=== PATIENT | female | born 1960 | race Caucasian/White ===

== ENCOUNTER → 2016-10-27 | Outpatient (CLI) | payer MEDICAID | LOC: MW.CHRC 15:54 | PROVIDERS: ATTEND Family Medicine | DX: M48.06 Spinal stenosis, lumbar region (principal); Z53.9 Procedure and treatment not carried out, unspecified reason ==

== ENCOUNTER → 2016-12-10 | Outpatient (CLI) | payer MEDICAID ==
[~2016-12-10] MED LIST: Albuterol 0.083% 2.5 MG/3 ML Neb Soln NEB ONE
== END | disposition home or self-care (01) ==
LOC: MW.RT 13:44
PROVIDERS: ATTEND Family Medicine
DX: R06.09 Other forms of dyspnea (principal); J44.9 Chronic obstructive pulmonary disease, unspecified
CPT/HCPCS: 94060; 94729

== ENCOUNTER 2016-12-14 08:52 | Day surgery (SDC) | payer MEDICAID ==
[~2016-12-14 08:52] MED LIST changes: -Albuterol 0.083% 2.5 MG/3 ML Neb Soln NEB ONE; +Lidocaine 2% 5 ML SDV ONE; +Midazolam 1 MG/ML 2 ML SDV ONE; +Propofol 200 MG/20 ML SDV ONE; +fentaNYL 100 MCG/2 ML SDV ONE
[2016-12-14] MEDS ORDERED: Lactated Ringers 1,000 ML IV SCH ×2 (09:00→13:45)
--- NOTE | 2016-12-14 10:02 | PCM.PREANE ---
Preanesthetic Assessment - Anesthesia/Transfusion/Family Hx Anesthesia History: Prior Anesthesia Without Reaction Family History of Anesthesia Reaction: No Transfusion History: No Prior Transfusion(s) - Review of Systems General: No Symptoms Pulmonary: Shortness of Breath Cardiovascular: No Symptoms Gastrointestinal: No symptoms Neurological: No Symptoms Other: Reports: None - Physical Assessment Respiratory Rate: 20 Vital Signs: Last Vital Signs Temp 36.7 C 12/14/16 09:00 Pulse 88 12/14/16 09:00 Resp 20 12/14/16 09:00 BP 155/84 H 12/14/16 09:00 Pulse Ox Height: 1.7 m Weight: 145.603 kg ASA Class: 3 Mental Status: Alert & Oriented x3 Airway Class: Mallampati = 3 Dentition: Reports: Normal Dentition Thyro-Mental Finger Breadths: 3 Mouth Opening Finger Breadths: 3 ROM/Head Extension: Limited/Partial Lungs: Decreased breath sounds Cardiovascular: Regular Rate, Regular Rhythm - Allergies Allergies/Adverse Reactions: Allergies Allergy/AdvReac Type Severity Reaction Status Date / Time ciprofloxacin [From Cipro] Allergy Hives Verified 12/09/16 15:01 - Blood Blood Available: No - Anesthesia Plan Pre-Op Medication Ordered: None - Acknowledgements Anesthesia Type Planned: General Anesthesia Pt an Appropriate Candidate for the Planned Anesthesia: Yes Alternatives and Risks of Anesthesia Discussed w Pt/Guardian: Yes Pt/Guardian Understands and Agrees with Anesthesia Plan: Yes PreAnesthesia Questionnaire HEENT History: Reports: None Other HEENT History: uses glasses for reading and driving Cardiovascular History: Reports: High cholesterol, Other (see below) ( paroxysmal tachicardia) Respiratory History: Reports: COPD (advanced), Sleep apnea (not using C-PAP mashine for years), SOB Other Respiratory History: She is O2 dependent. Recent flare up, tapering prednisone - down to 20 mg per day. Finished Z-pack 10 days ago. 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 Paula for pain, has lumbar spinal stenosis, hx of fx toes and hands Neurological History: Reports: None, Other (see below) (myofascial pain, cervical radiculopathy) Psychiatric History: Reports: Anxiety, Depression Endocrine/Metabolic History: Reports: Obesity/BMI 30+, Other (see below) (right adrenal adenoma) Hematologic History: Reports: Polycythemia (sec. to hypoxia) Immunologic History: Reports: None Oncologic (Cancer) History: Reports: None Dermatologic History: Reports: None Other Dermatologic History: Chronic Hives - Infectious Disease History Infectious Disease History: Reports: None - Past Surgical History Head Surgeries/Procedures: Reports: None HEENT Surgical History: Reports: Tonsillectomy Cardiovascular Surgical History: Reports: None Respiratory Surgical History: Reports: None GI Surgical History: Reports: Appendectomy, Cholecystectomy Female Surgical History: Reports: Breast biopsy, section, Tubal ligation Endocrine Surgical History: Reports: None Neurological Surgical History: Reports: Lumbar spine Musculoskeletal Surgical History: Reports: None Oncologic Surgical History: Reports: Lumpectomy (left breast) Dermatological Surgical History: Reports: None - SUBSTANCE USE Smoking Status *Q: Former Smoker (quit a year ago) Tobacco Use Within Last Twelve Months: No Second Hand Smoke Exposure: No Days Per Week of Alcohol Use: 1 Number of Drinks Per Day: 1 Total Drinks Per Week: 1 Recreational Drug Use History: Yes Recreational Drug Type: Reports: Methamphetamine (for 15 years) - HOME MEDS Home Medications: Home Meds Albuterol [Proventil HFA] 2 puff INH Q4H PRN 04/30/14 [History] Omeprazole [Prilosec] 20 mg PO DAILY 04/30/14 [History] Hydrocodone/Acetaminophen [Hydrocodon-Acetaminophen 5-325] 1 tab PO ASDIRECTED PRN 09/09/14 [History] Cyclobenzaprine [Flexeril] 0.5 - 1 tab PO TID PRN 11/15/15 [History] Dicyclomine HCl [Bentyl] 1 - 2 tab PO TID PRN 11/15/15 [History] Montelukast Sodium [Singulair] 10 mg PO DAILY 11/15/15 [History] Ranitidine HCl 150 mg PO DAILY PRN 11/15/15 [History] Vilazodone [Viibryd] 40 mg PO DAILY 11/15/15 [History] Albuterol Sulfate 2.5 mg NEB Q4HR PRN 01/02/16 [History] Fluticasone/Salmeterol [Advair 250-50 Diskus] 1 disk IH BID 01/02/16 [History] Ipratropium [place] 0.2 mg NEB QID PRN 01/02/16 [History] Benzonatate 100 mg PO TID PRN 12/09/16 [History] Magnesium Oxide [Magnesium] 250 mg PO DAILY 12/09/16 [History] Pyridoxine HCl [Vitamin B-6] 250 mg PO ASDIRECTED 12/09/16 [History] Rosuvastatin Calcium 5 mg PO BEDTIME 12/09/16 [History] Turmeric [Curcumin] 500 mg PO ASDIRECTED 12/09/16 [History] - CURRENT (IN HOUSE) MEDS Current Meds: Current Medications Lactated Ringer's (Ringers, Lactated) 1,000 mls @ 125 mls/hr IV ASDIRECTED TEMITOPE Discontinued Medications Fentanyl (Sublimaze) Confirm Administered Dose 100 mcg .ROUTE .STK-MED ONE Stop: 12/14/16 08:40 Lidocaine (Xylocaine-Mpf 2%) Confirm Administered Dose 5 ml .ROUTE .STK-MED ONE Stop: 12/14/16 08:39 Midazolam HCl (Versed 1 Mg/Ml) Confirm Administered Dose 2 mg .ROUTE .STK-MED ONE Stop: 12/14/16 08:40 Propofol (Diprivan 20 Ml) Confirm Administered Dose 200 mg .ROUTE .STK-MED ONE Stop: 12/14/16 08:40
[2016-12-14] MEDS ORDERED: Albuterol/Ipratropium 3.0-0.5 MG/3 ML Neb Soln NEB ONE (12:02)
[2016-12-14] MEDS ORDERED: Albuterol/Ipratropium 3.0-0.5 MG/3 ML Neb Soln ONE (12:10)
[2016-12-14] MEDS ORDERED: Bupivacaine 0.5% 10 ML SDV ONE ×2 (12:17→13:06)
[2016-12-14] MEDS ORDERED: Lidocaine 1% 20 ML MDV ONE (12:17)
[2016-12-14] MEDS ORDERED: methylPREDNISolone Sodium Succinate 125 MG/2 ML SDV ONE (12:21)
[2016-12-14] MEDS ORDERED: Ondansetron 4 MG/2 ML SDV ONE (13:02)
[2016-12-14] MEDS ORDERED: fentaNYL 100 MCG/2 ML SDV IVPUSH PRN (13:03)
[2016-12-14] MEDS ORDERED: Morphine 10 MG/ML Syringe IVPUSH PRN (13:36)
[2016-12-14] MEDS ORDERED: Acetaminophen/HYDROcodone 325-5 MG Tab PO PRN (13:36)
--- NOTE | 2016-12-14 13:39 | PCM.OPNOTE ---
- General Post-Op/Procedure Note Date of Surgery/Procedure: 12/14/16 Operative Procedure(s): Excision left breast mass Pre Op Diagnosis: Palpable left breast mass Post-Op Diagnosis: Same Anesthesia Technique: Local, MAC (ASA III) Primary Surgeon: Lloyd Wang Fluid Replacement, Intraop: 300 EBL in mLs: 5 Condition: Good Free Text/Narrative:: Dictation [id number]
[2016-12-14 14:22] VITALS: BP 128/72
--- NOTE | 2016-12-14 14:23 | PCM48HPAN ---
Post Anesthesia Note - EVALUATION WITHIN 48HRS OF ANESTHETIC Vital Signs in Normal Range: Yes Patient Participated in Evaluation: Yes Respiratory Function Stable: Yes Airway Patent: Yes Cardiovascular Function Stable: Yes Hydration Status Stable: Yes Pain Control Satisfactory: Yes Nausea and Vomiting Control Satisfactory: Yes Mental Status Recovered: Yes - COMMENTS/OBSERVATIONS Free Text/Narrative:: Pt states she's ready to go home - has no complaints of pain or nausea.
--- NOTE | 2016-12-14 20:41 | OR ---
SURGEON: Lloyd Wang M.D. DATE OF PROCEDURE: 12/14/2016 OPERATION PERFORMED: Excision of left breast mass. ANESTHESIA: Local MAC. ASA CLASSIFICATION: III. PREOPERATIVE DIAGNOSIS: Palpable left breast mass with nipple discharge. POSTOPERATIVE DIAGNOSIS: Palpable left breast mass with nipple discharge. ESTIMATED BLOOD LOSS: 5 mL. INTRAOPERATIVE FLUID REPLACEMENT: 300 mL of crystalloid. DESCRIPTION OF PROCEDURE: The patient was taken to the operating room and placed on the operating table in the supine position. Time-out was called for appropriate identification of patient and procedure. The surgical site had been marked prior to the patient entering the operating room. The patient was now positioned at approximately 30 degrees head up as she had severe COPD. The left breast was then prepped with Betadine solution, and sterile drapes were applied. A skin incision previously had been marked out going through the areola right over the mass. The skin was now infiltrated with 1% Xylocaine, then 0.5% Marcaine solution. An elliptical skin incision was then made and deepened into the breast tissue excising the mass in question. Clinically, this appeared to be a cyst. There was also some induration under the nipple at the 12 o'clock position, and this area was also dissected out with a separate incision. Both areas were completely removed. Hemostasis was obtained with the use of electrocautery. Both incisions were then closed in 2 layers approximating the subcutaneous tissue with 3-0 Polysorb and the skin with subcuticular 4-0 Monocryl. Because both incisions were in the areola, no Steri-Strips were placed. The wound was then dressed with Telfa pad, fluffs, and Mefix tape. Sponge, needle, and instrument counts were all correct. The patient tolerated the procedure well and was taken to the recovery room in stable condition. DAMI / CORAL /[id number]
== END 2016-12-14 14:30 | disposition home or self-care (01) ==
LOC: MW.SDS 08:52
PROVIDERS: ATTEND Surgery
PROC: 0HBU0ZZ Excision of Left Breast, Open Approach (ICD-10-PCS; principal; 2016-12-14)
DX: L72.0 Epidermal cyst (principal); N60.42 Mammary duct ectasia of left breast; N64.1 Fat necrosis of breast; J44.9 Chronic obstructive pulmonary disease, unspecified; F41.9 Anxiety disorder, unspecified; M19.90 Unspecified osteoarthritis, unspecified site; J45.909 Unspecified asthma, uncomplicated; F32.9 Major depressive disorder, single episode, unspecified; E78.00 Pure hypercholesterolemia, unspecified; K21.9 Gastro-esophageal reflux disease without esophagitis; M19.049 Primary osteoarthritis, unspecified hand; D69.6 Thrombocytopenia, unspecified; G47.30 Sleep apnea, unspecified; D75.1 Secondary polycythemia; E66.01 Morbid (severe) obesity due to excess calories; Z87.01 Personal history of pneumonia (recurrent); Z87.891 Personal history of nicotine dependence; Z88.1 Allergy status to other antibiotic agents; Z99.81 Dependence on supplemental oxygen; Z79.899 Other long term (current) drug therapy; Z98.51 Tubal ligation status; Z90.49 Acquired absence of other specified parts of digestive tract; Z90.89 Acquired absence of other organs; Z98.890 Other specified postprocedural states; Z68.43 Body mass index [BMI] 50.0-59.9, adult
CPT/HCPCS: 19120; 88307; 94640; J2250; J2405; J2930; J3010; 00400; J2704

== ENCOUNTER 2019-06-24 10:43 | Emergency (ER) | payer MEDICAID ==
[2019-06-24 10:58] VITALS: BP 146/85; PULSE 96
--- NOTE | 2019-06-24 11:04 | EDM.PDOC ---
ED HPI GENERAL MEDICAL PROBLEM - General Chief Complaint: General Stated Complaint: INFECTION Time Seen by Provider: 06/24/19 10:57 Source of Information: Reports: Patient History Limitations: Reports: No Limitations - History of Present Illness INITIAL COMMENTS - FREE TEXT/NARRATIVE: HISTORY AND PHYSICAL: History of present illness: Patient is a 59-year-old female presents to the ED with complaint of mouth infection. She states she has had this before and sees her dentist for it regularly, she states doxycycline has worked well in the past. She denies fevers or chills and has no other complaints at this time. Review of systems: As per history of present illness and below otherwise all systems reviewed and negative. Past medical history: As per history of present illness and as reviewed below otherwise noncontributory. Surgical history: As per history of present illness and as reviewed below otherwise noncontributory. Social history: No reported history of drug or alcohol abuse. Family history: As per history of present illness and as reviewed below otherwise noncontributory. Physical exam: General: Patient sitting comfortably in no acute distress and nontoxic appearing HEENT: Poor dentition throughout. Carries to teeth #11 and #12 with adjacent gum swelling without abscess. Atraumatic, normocephalic, pupils reactive, negative for conjunctival pallor or scleral icterus, mucous membranes moist, throat clear, neck supple, nontender, trachea midline. No meningeal signs. Lungs: Clear to auscultation, breath sounds equal bilaterally, chest nontender. Heart: S1S2, regular, negative for clicks, rubs, or overt murmur. Abdomen: Soft, nondistended, nontender. Negative for masses or hepatosplenomegaly. Negative for costovertebral tenderness. No rigidity, rebound , guarding. Pelvis: Stable nontender. Genitourinary: Deferred. Rectal: Deferred. Extremities: Atraumatic, negative for cords or calf pain. Neurovascular unremarkable. Neuro: Awake, alert, oriented. Cranial nerves II through XII unremarkable. Cerebellum unremarkable. Motor and sensory unremarkable throughout. Exam nonfocal. Notes: Diagnostics: [] Therapeutics: Dental balls Prescriptions: Doxycycline Impression: dentalgia, dental infection Plan: Take antibiotic as instructed Use dental balls and alternate Tylenol and ibuprofen as needed Follow-up with dentist Return to ED as needed as discussed Definitive disposition and diagnosis as appropriate pending reevaluation and review of above. - Related Data Allergies Allergy/AdvReac Type Severity Reaction Status Date / Time ciprofloxacin [From Cipro] Allergy Hives Verified 06/24/19 10:58 Home Meds: Home Meds Albuterol [Proventil HFA] 2 puff INH Q4H PRN 04/30/14 [History] Omeprazole [Prilosec] 20 mg PO DAILY 04/30/14 [History] Hydrocodone/Acetaminophen [Hydrocodon-Acetaminophen 5-325] 1 tab PO ASDIRECTED PRN 09/09/14 [History] Cyclobenzaprine [Flexeril] 0.5 - 1 tab PO TID PRN 11/15/15 [History] Dicyclomine HCl [Bentyl] 1 - 2 tab PO TID PRN 11/15/15 [History] Montelukast Sodium [Singulair] 10 mg PO DAILY 11/15/15 [History] Ranitidine HCl 150 mg PO DAILY PRN 11/15/15 [History] Vilazodone [Viibryd] 40 mg PO DAILY 11/15/15 [History] Albuterol Sulfate 2.5 mg NEB Q4HR PRN 01/02/16 [History] Fluticasone/Salmeterol [Advair 250-50 Diskus] 1 disk IH BID 01/02/16 [History] Ipratropium [place] 0.2 mg NEB QID PRN 01/02/16 [History] Benzonatate 100 mg PO TID PRN 12/09/16 [History] Magnesium Oxide [Magnesium] 250 mg PO DAILY 12/09/16 [History] Pyridoxine HCl [Vitamin B-6] 250 mg PO ASDIRECTED 12/09/16 [History] Rosuvastatin Calcium 5 mg PO BEDTIME 12/09/16 [History] Turmeric [Curcumin] 500 mg PO ASDIRECTED 12/09/16 [History] Acetaminophen/HYDROcodone [[place] 325-5 MG] 1 tab PO Q8HR #20 tablet 12/14/16 [Rx ] Doxycycline [Vibramycin] 100 mg PO BID 10 Days #20 cap 06/24/19 [Rx] Past Medical History HEENT History: Reports: None Other HEENT History: uses glasses for reading and driving Cardiovascular History: Reports: High Cholesterol, Other (See Below) Respiratory History: Reports: COPD, Sleep Apnea, SOB Other Respiratory History: She is O2 dependent. Recent flare up, tapering prednisone - down to 20 mg per day. Finished Z-pack 10 days ago. 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 Paula for pain, has lumbar spinal stenosis, hx of fx toes and hands Neurological History: Reports: None, Other (See Below) Psychiatric History: Reports: Anxiety, Depression Endocrine/Metabolic History: Reports: Obesity/BMI 30+, Other (See Below) Hematologic History: Reports: Polycythemia (sec. to hypoxia) Immunologic History: Reports: None Oncologic (Cancer) History: Reports: None Dermatologic History: Reports: None Other Dermatologic History: Chronic Hives - Infectious Disease History Infectious Disease History: Reports: None - Past Surgical History Female Surgical History: Reports: Breast Biopsy, Section, Tubal Ligation Neurological Surgical History: Reports: Lumbar Spine Social & Family History - Family History Family Medical History: Noncontributory Oncologic: Reports: Leukemia ED ROS GENERAL - Review of Systems Review Of Systems: ROS reveals no pertinent complaints other than HPI. ED EXAM, GENERAL - Physical Exam Exam: See Below (see dictation) Departure - Departure Time of Disposition: 11:04 Disposition: Home, Self-Care 01 Condition: Good Clinical Impression: Dentalgia, Dental infection - Discharge Information Referrals: Robert Doyle MD [Primary Care Provider] - Forms: ED Department Discharge Additional Instructions: The following information is given to patients seen in the emergency department who are being discharged to home. This information is to outline your options for follow-up care. We provide all patients seen in our emergency department with a follow-up referral. The need for follow-up, as well as the timing and circumstances, are variable depending upon the specifics of your emergency department visit. If you don't have a primary care physician on staff, we will provide you with a referral. We always advise you to contact your personal physician following an emergency department visit to inform them of the circumstance of the visit and for follow-up with them and/or the need for any referrals to a consulting specialist. The emergency department will also refer you to a specialist when appropriate. This referral assures that you have the opportunity for follow-up care with a specialist. All of these measure are taken in an effort to provide you with optimal care, which includes your follow-up. Under all circumstances we always encourage you to contact your private physician who remains a resource for coordinating your care. When calling for follow-up care, please make the office aware that this follow-up is from your recent emergency room visit. If for any reason you are refused follow-up, please contact the [facility] Emergency Department at and asked to speak to the emergency department charge nurse. [facility] Primary Care [address] [place] [id number] [facility] [address] [place] [id number] Take antibiotic as instructed Use dental balls and alternate Tylenol and ibuprofen as needed Follow-up with dentist Return to ED as needed as discussed
[2019-06-24] MEDS ORDERED: Lidocaine 2% Viscous Solution 15 ML Cup PO ONE (11:05)
[2019-06-24] MEDS ORDERED: Benzocaine 20% Topical Spray UD MUCMEM ONE (11:05)
== END 2019-06-24 11:20 | disposition home or self-care (01) ==
LOC: MW.ED 10:43
DX: K04.7 Periapical abscess without sinus (principal); K02.9 Dental caries, unspecified; E78.00 Pure hypercholesterolemia, unspecified; J44.9 Chronic obstructive pulmonary disease, unspecified; K21.9 Gastro-esophageal reflux disease without esophagitis; F32.9 Major depressive disorder, single episode, unspecified; F41.9 Anxiety disorder, unspecified; E66.9 Obesity, unspecified; Z68.43 Body mass index [BMI] 50.0-59.9, adult; Z88.1 Allergy status to other antibiotic agents; Z79.899 Other long term (current) drug therapy; Z79.51 Long term (current) use of inhaled steroids; Z99.81 Dependence on supplemental oxygen
CPT/HCPCS: 99283; A9270

== ENCOUNTER 2023-12-15 17:33 | Inpatient (IN) | payer MEDICARE, MEDICAID, OTHER ==
[2023-12-15 18:05] LABS: BASOPHILS ABSOLUTE AUTO 0.02 K/uL (0.00-0.20); BASOPHILS PERCENT AUTO 0.1 % (0.0-1.0); EOSINOPHILS ABSOLUTE AUTO 0.03 K/uL (0.00-0.45); EOSINOPHILS PERCENT AUTO 0.2 % (0.0-6.0); HEMATOCRIT 42.3 % (37.0-47.0); HEMOGLOBIN 13.4 g/dL (12.0-16.0); IMMATURE GRAN ABSOLUTE AUTO 0.05 K/uL (0.00-0.05); IMMATURE GRAN PERCENT AUTO 0.3 % (0.0-0.4); LYMPHOCYTES ABSOLUTE AUTO 1.51 K/uL (1.00-4.80); MEAN CORPUSCULAR HEMOGLOBIN 27.5 pg (28.0-32.0); MEAN CORPUSCULAR HGB CONC 31.7 g/dL (32.0-36.0); MEAN CORPUSCULAR VOLUME 86.9 fL (83.0-99.0); MEAN PLATELET VOLUME 11.2 fL (9.4-12.3); MONOCYTES ABSOLUTE AUTO 1.18 K/uL (0.00-0.80); NEUTROPHILS ABSOLUTE AUTO 14.01 K/uL (1.80-7.70); NEUTROPHILS PERCENT AUTO 83.4 % (41.0-71.0); PLATELET COUNT,PLT 141 K/uL (150-400); RED BLOOD CELL COUNT 4.87 M/uL (4.10-5.30)
[2023-12-15] MEDS: Aspirin 325 MG Tab PO ONE (18:05)
[2023-12-15] MEDS: Sodium Chloride 0.9% 10 ML Syringe FLUSH PRN (18:06)
[2023-12-15] MEDS: Diltiazem 25 MG/5 ML SDV IVPUSH ONE ×2 (18:06→18:45)
[2023-12-15] MEDS: Furosemide 40 MG/4 ML VIAL IVPUSH ONE (18:06)
[2023-12-15] MEDS: Sodium Chloride 0.9% 2.5 ML Syringe FLUSH PRN (18:07)
[2023-12-15 18:37] LABS: CORONAVIRUS COVID-19 NAA NEGATIVE (NEGATIVE); INFLUENZA A NAA NEGATIVE (NEGATIVE); INFLUENZA B NAA NEGATIVE (NEGATIVE); RESPIRATORY SYNCYTIAL VIR NAA NEGATIVE (NEGATIVE)
[2023-12-15 18:49] LABS: A/G RATIO 0.8 (0.9-1.6); ALBUMIN 3.4 g/dL (3.4-5.0); BILIRUBIN TOTAL 0.5 mg/dL (0.2-1.0); CALCIUM 9.4 mg/dL (8.5-10.1); CARBON DIOXIDE,CO2 29.8 mmol/L (21.0-32.0); CREATININE 1.2 mg/dL (0.6-1.0); EST CRCL DRUG DOSING (CG) 45.45 mL/min; POTASSIUM,K 3.7 mmol/L (3.5-5.1); PROTEIN TOTAL,TP 7.5 g/dL (6.4-8.2); TSH ULTRASENSITIVE 5.81 uIU/mL (0.36-3.74)
[2023-12-15] MEDS: Azithromycin 500 MG in Sodium Chloride 0.9% 250 ML IV ONE (19:09)
[2023-12-15] MEDS: cefTRIAXone 1 GM in Sodium Chloride 0.9% 50 ML IV ONE (19:09)
[2023-12-15] MEDS: Diltiazem 100 MG in Sodium Chloride 0.9% 100 ML IV SCH (19:18)
[2023-12-15 19:33] LABS: T4 FREE 0.95 ng/dL (0.76-1.46)
[2023-12-15] MEDS: Enoxaparin 150 MG/1 ML Syringe SUBCUT STA (20:59)
[2023-12-15] MEDS: Digoxin 500 MCG/2 ML Amp IVPUSH ONE (21:00)
[2023-12-15] MEDS: Acetaminophen/HYDROcodone 325-5 MG Tab PO ONE (21:32)
[2023-12-15] MEDS: Cyclobenzaprine 10 MG Tab PO ONE (21:32)
[2023-12-15 22:27] LABS: BILIRUBIN,URINE NEGATIVE (NEGATIVE); COLOR,URINE YELLOW; GLUCOSE,URINE NEGATIVE (NEGATIVE); KETONES,URINE NEGATIVE (NEGATIVE); LEUKOCYTE ESTERASE,URINE NEGATIVE (NEGATIVE); NITRITE,URINE POSITIVE (NEGATIVE); OCCULT BLOOD,URINE NEGATIVE (NEGATIVE); PROTEIN,URINE NEGATIVE (NEGATIVE); UROBILINOGEN,URINE 0.2 EU/dL (<2.0)
[2023-12-15] MEDS: Diltiazem IR 60 MG Tab PO ONE (22:32)
[2023-12-15 22:40] LABS: APPEARANCE,URINE HAZY
[2023-12-15 22:42] LABS: EPITHELIAL CELLS,URINE OCCASIONAL (NONE-FEW); RBC,URINE 0-2 (0-2/HPF); WBC,URINE 0-5 (0-5/HPF)
[2023-12-15 22:50] LABS: BACTERIA,URINE FEW (NEGATIVE)
[2023-12-15] MEDS ORDERED: Acetaminophen 650 MG Supp RECTAL PRN (22:51)
[2023-12-15] MEDS ORDERED: Ondansetron 4 MG/2 ML SDV IVPUSH PRN (22:51)
[2023-12-15] MEDS ORDERED: Melatonin 3 MG Tab PO PRN (22:51)
[2023-12-15] MEDS ORDERED: Albuterol/Ipratropium 3.0-0.5 MG/3 ML Neb Soln NEB PRN (22:51)
[2023-12-15] MEDS ORDERED: Acetaminophen 325 MG Tab PO PRN (22:51)
[2023-12-15] MEDS ORDERED: ORPHENADRINE CITRATE 100 MG PO PRN (22:54)
[2023-12-15] MEDS ORDERED: ACETAMINOPHEN PO PRN (22:54)
[2023-12-15] MEDS ORDERED: HYDROCODONE PO PRN (22:54)
[2023-12-15] MEDS ORDERED: Dicyclomine 10 MG Cap PO PRN (22:54)
[2023-12-15] MEDS ORDERED: Enoxaparin 40 MG/0.4 ML Syringe SUBCUT SCH (23:00)
[2023-12-15] MEDS ORDERED: Digoxin 500 MCG/2 ML Amp IVPUSH ONE (23:00)
[2023-12-15] MEDS: Pantoprazole 40 MG in Sodium Chloride 0.9% 10 ML IVPUSH SCH (23:58)
[2023-12-15] MEDS: Potassium Chloride 20 MEQ Tab.ER PO ONE (23:58)
[2023-12-15] MEDS: Magnesium Oxide 400 MG Tab PO ONE (23:58)
[2023-12-15] MEDS: Apixaban 5 MG Tab PO SCH (23:59)
[2023-12-16] MEDS: Sodium Chloride 0.9% 100 ML ONE (03:46)
[2023-12-16] MEDS: cefTRIAXone 1 GM in Sodium Chloride 0.9% 50 ML IV SCH (06:05)
[2023-12-16 06:08] LABS: BASOPHILS ABSOLUTE AUTO 0.04 K/uL (0.00-0.20); BASOPHILS PERCENT AUTO 0.4 % (0.0-1.0); EOSINOPHILS PERCENT AUTO 0.9 % (0.0-6.0); HEMATOCRIT 36.6 % (37.0-47.0); HEMOGLOBIN 11.6 g/dL (12.0-16.0); IMMATURE GRAN ABSOLUTE AUTO 0.03 K/uL (0.00-0.05); IMMATURE GRAN PERCENT AUTO 0.3 % (0.0-0.4); LYMPHOCYTES ABSOLUTE AUTO 1.89 K/uL (1.00-4.80); LYMPHOCYTES PERCENT AUTO 16.9 % (24.0-44.0); MEAN CORPUSCULAR HEMOGLOBIN 27.4 pg (28.0-32.0); MEAN CORPUSCULAR HGB CONC 31.7 g/dL (32.0-36.0); MEAN CORPUSCULAR VOLUME 86.5 fL (83.0-99.0); MEAN PLATELET VOLUME 11.8 fL (9.4-12.3); MONOCYTES ABSOLUTE AUTO 0.74 K/uL (0.00-0.80); MONOCYTES PERCENT AUTO 6.6 % (0.0-8.0); NEUTROPHILS ABSOLUTE AUTO 8.37 K/uL (1.80-7.70); NEUTROPHILS PERCENT AUTO 74.9 % (41.0-71.0); PLATELET COUNT,PLT 130 K/uL (150-400); RED BLOOD CELL COUNT 4.23 M/uL (4.10-5.30); WHITE BLOOD CELL COUNT,WBC 11.17 K/uL (3.9-11.3)
[2023-12-16] MEDS: Azithromycin 500 MG in Sodium Chloride 0.9% 250 ML IV SCH (06:38)
[2023-12-16 06:46] LABS: A/G RATIO 0.9 (0.9-1.6); ALBUMIN 2.9 g/dL (3.4-5.0); BILIRUBIN TOTAL 0.5 mg/dL (0.2-1.0); CALCIUM 8.3 mg/dL (8.5-10.1); CARBON DIOXIDE,CO2 29.1 mmol/L (21.0-32.0); CREATININE 0.9 mg/dL (0.6-1.0); EST CRCL DRUG DOSING (CG) 60.6 mL/min; MAGNESIUM 2.1 mg/dL (1.8-2.4); PHOSPHORUS 3.3 mg/dL (2.6-4.7); POTASSIUM,K 3.5 mmol/L (3.5-5.1); PROTEIN TOTAL,TP 6.3 g/dL (6.4-8.2)
[2023-12-16] MEDS ORDERED: Dicyclomine 10 MG Cap PO PRN (06:54)
[2023-12-16] MEDS: predniSONE 20 MG Tab PO SCH (08:07)
[2023-12-16] MEDS: Diltiazem IR 30 MG Tab PO SCH (08:07)
[2023-12-16] MEDS: Furosemide 40 MG/4 ML VIAL IVPUSH SCH (08:08)
[2023-12-16] MEDS: Albuterol/Ipratropium 3.0-0.5 MG/3 ML Neb Soln NEB SCH (08:09)
[2023-12-16] MEDS ORDERED: Furosemide 40 MG/4 ML VIAL IVPUSH SCH (09:00)
[2023-12-16] MEDS ORDERED: Non-Formulary Medication 1 Each (Fluticasone Propion/Salmeterol [Advair 250-50 Diskus] 1 E IH SCH (09:00)
[2023-12-16] MEDS: Potassium Chloride 20 MEQ Tab.ER PO ONE (09:50)
[2023-12-16] MEDS: tiZANidine 4 MG Tab PO PRN (09:51)
[2023-12-16] MEDS: Acetaminophen/oxyCODONE 325-5 MG Tab PO PRN (12:28)
[2023-12-16] MEDS: atorvaSTATin 10 MG Tab PO SCH (21:01)
[2023-12-16] MEDS: Montelukast 10 MG Tab PO SCH (21:01)
[2023-12-16] MEDS: Formoterol/Mometasone 200-5 MCG 8.8 GM Inhaler INH SCH (21:03)
[2023-12-17 06:09] LABS: BASOPHILS ABSOLUTE AUTO 0.03 K/uL (0.00-0.20); BASOPHILS PERCENT AUTO 0.4 % (0.0-1.0); EOSINOPHILS ABSOLUTE AUTO 0.12 K/uL (0.00-0.45); EOSINOPHILS PERCENT AUTO 1.7 % (0.0-6.0); HEMATOCRIT 36.6 % (37.0-47.0); HEMOGLOBIN 11.5 g/dL (12.0-16.0); IMMATURE GRAN ABSOLUTE AUTO 0.02 K/uL (0.00-0.05); IMMATURE GRAN PERCENT AUTO 0.3 % (0.0-0.4); LYMPHOCYTES PERCENT AUTO 21.6 % (24.0-44.0); MEAN CORPUSCULAR HEMOGLOBIN 27.1 pg (28.0-32.0); MEAN CORPUSCULAR HGB CONC 31.4 g/dL (32.0-36.0); MEAN CORPUSCULAR VOLUME 86.3 fL (83.0-99.0); MEAN PLATELET VOLUME 11.3 fL (9.4-12.3); MONOCYTES ABSOLUTE AUTO 0.54 K/uL (0.00-0.80); MONOCYTES PERCENT AUTO 7.8 % (0.0-8.0); NEUTROPHILS ABSOLUTE AUTO 4.75 K/uL (1.80-7.70); NEUTROPHILS PERCENT AUTO 68.2 % (41.0-71.0); PLATELET COUNT,PLT 142 K/uL (150-400); RED BLOOD CELL COUNT 4.24 M/uL (4.10-5.30); WHITE BLOOD CELL COUNT,WBC 6.96 K/uL (3.9-11.3)
[2023-12-17 06:38] LABS: A/G RATIO 0.8 (0.9-1.6); ALBUMIN 2.9 g/dL (3.4-5.0); BILIRUBIN TOTAL 0.2 mg/dL (0.2-1.0); CALCIUM 8.6 mg/dL (8.5-10.1); CARBON DIOXIDE,CO2 29.5 mmol/L (21.0-32.0); CREATININE 0.9 mg/dL (0.6-1.0); EST CRCL DRUG DOSING (CG) 60.6 mL/min; POTASSIUM,K 3.8 mmol/L (3.5-5.1); PROTEIN TOTAL,TP 6.4 g/dL (6.4-8.2)
[2023-12-17] MEDS: Diltiazem 120 MG Cap.CD PO SCH (08:37)
[2023-12-17] MEDS: Polyethylene Glycol 3350 Powder 17 GM Packet PO PRN (09:22)
[2023-12-17 11:55] VITALS: BP 135/78; PULSE 83
[2023-12-17] MEDS ORDERED: Pantoprazole 40 MG Tab.CR PO SCH (21:00)
== END 2023-12-17 14:30 | disposition home or self-care (01) | DRG 193 ==
LOC: MW.ED 17:33 → MW.ICU 22:28 → MW.MS 12-16 20:45
PROVIDERS: ADMIT Family Medicine; ATTEND Family Medicine
DX: J18.9 Pneumonia, unspecified organism (principal); J96.01 Acute respiratory failure with hypoxia; J44.0 Chronic obstructive pulmonary disease with (acute) lower respiratory infection; J44.1 Chronic obstructive pulmonary disease with (acute) exacerbation; Z68.42 Body mass index [BMI] 45.0-49.9, adult; I48.91 Unspecified atrial fibrillation; I50.9 Heart failure, unspecified; G47.33 Obstructive sleep apnea (adult) (pediatric); G89.29 Other chronic pain; M54.9 Dorsalgia, unspecified; E66.9 Obesity, unspecified; K21.9 Gastro-esophageal reflux disease without esophagitis; E78.5 Hyperlipidemia, unspecified; F41.9 Anxiety disorder, unspecified; F32.A Depression, unspecified; Z88.1 Allergy status to other antibiotic agents; Z79.01 Long term (current) use of anticoagulants; Z98.51 Tubal ligation status; Z87.891 Personal history of nicotine dependence
CPT/HCPCS: 0241U; 36415; 71045; 71045-26; 80053; 80061; 81001; 81003; 83036; 83605; 83735; 83880; 84100; 84439; 84443; 84484; 85025; 87040; 87086; 93005; 93010; 93306; 94640; 96365; 96366; 96367; 96368; 96372; 96375; 96376; 99285-25; 99291; A9270-GY; C9113; J0456; J0696; J1160; J1650; J1940; J3490; J7050; J7620-GY

== ENCOUNTER 2024-02-08 22:36 | Inpatient (IN) | payer MEDICARE, MEDICAID ==
[2024-02-08] MEDS: Diltiazem 25 MG/5 ML SDV IVPUSH ONE ×2 (22:59→23:21)
[2024-02-08] MEDS: Sodium Chloride 0.9% 10 ML Syringe FLUSH PRN (22:59)
[2024-02-08] MEDS: Sodium Chloride 0.9% 2.5 ML Syringe FLUSH PRN (22:59)
[2024-02-08 23:00] LABS: BASOPHILS ABSOLUTE AUTO 0.02 K/uL (0.00-0.20); BASOPHILS PERCENT AUTO 0.3 % (0.0-1.0); EOSINOPHILS ABSOLUTE AUTO 0.13 K/uL (0.00-0.45); EOSINOPHILS PERCENT AUTO 1.7 % (0.0-6.0); HEMATOCRIT 45.3 % (37.0-47.0); IMMATURE GRAN ABSOLUTE AUTO 0.01 K/uL (0.00-0.05); IMMATURE GRAN PERCENT AUTO 0.1 % (0.0-0.4); LYMPHOCYTES ABSOLUTE AUTO 2.29 K/uL (1.00-4.80); LYMPHOCYTES PERCENT AUTO 30.3 % (24.0-44.0); MEAN CORPUSCULAR HEMOGLOBIN 26.6 pg (28.0-32.0); MEAN CORPUSCULAR HGB CONC 30.9 g/dL (32.0-36.0); MEAN CORPUSCULAR VOLUME 86.1 fL (83.0-99.0); MEAN PLATELET VOLUME 10.6 fL (9.4-12.3); MONOCYTES ABSOLUTE AUTO 0.69 K/uL (0.00-0.80); MONOCYTES PERCENT AUTO 9.1 % (0.0-8.0); NEUTROPHILS ABSOLUTE AUTO 4.43 K/uL (1.80-7.70); NEUTROPHILS PERCENT AUTO 58.5 % (41.0-71.0); PLATELET COUNT,PLT 159 K/uL (150-400); RED BLOOD CELL COUNT 5.26 M/uL (4.10-5.30); WHITE BLOOD CELL COUNT,WBC 7.57 K/uL (3.9-11.3)
[2024-02-08 23:21] LABS: A/G RATIO 1.4 (0.9-1.6); ALBUMIN 4.2 g/dL (3.4-5.0); BILIRUBIN TOTAL 0.3 mg/dL (0.2-1.0); CALCIUM 8.9 mg/dL (8.5-10.1); CARBON DIOXIDE,CO2 29.5 mmol/L (21.0-32.0); EST CRCL DRUG DOSING (CG) 43.77 mL/min; POTASSIUM,K 3.8 mmol/L (3.5-5.1); PROTEIN TOTAL,TP 7.3 g/dL (6.4-8.2)
[2024-02-08] MEDS: Digoxin 500 MCG/2 ML Amp IVPUSH ONE (23:39)
[2024-02-09] MEDS: Diltiazem 100 MG in Sodium Chloride 0.9% 100 ML IV SCH (00:04)
[2024-02-09] MEDS: Sodium Chloride 0.9% 500 ML IV SCH (01:52)
[2024-02-09] MEDS ORDERED: Albuterol/Ipratropium 3.0-0.5 MG/3 ML Neb Soln NEB PRN (03:09)
[2024-02-09 06:14] LABS: BASOPHILS ABSOLUTE AUTO 0.02 K/uL (0.00-0.20); BASOPHILS PERCENT AUTO 0.3 % (0.0-1.0); EOSINOPHILS ABSOLUTE AUTO 0.09 K/uL (0.00-0.45); EOSINOPHILS PERCENT AUTO 1.5 % (0.0-6.0); HEMATOCRIT 37.5 % (37.0-47.0); HEMOGLOBIN 11.7 g/dL (12.0-16.0); IMMATURE GRAN ABSOLUTE AUTO 0.02 K/uL (0.00-0.05); IMMATURE GRAN PERCENT AUTO 0.3 % (0.0-0.4); LYMPHOCYTES ABSOLUTE AUTO 1.57 K/uL (1.00-4.80); LYMPHOCYTES PERCENT AUTO 26.2 % (24.0-44.0); MEAN CORPUSCULAR HEMOGLOBIN 26.8 pg (28.0-32.0); MEAN CORPUSCULAR HGB CONC 31.2 g/dL (32.0-36.0); MEAN PLATELET VOLUME 10.9 fL (9.4-12.3); MONOCYTES ABSOLUTE AUTO 0.52 K/uL (0.00-0.80); MONOCYTES PERCENT AUTO 8.7 % (0.0-8.0); NEUTROPHILS ABSOLUTE AUTO 3.77 K/uL (1.80-7.70); PLATELET COUNT,PLT 142 K/uL (150-400); RED BLOOD CELL COUNT 4.36 M/uL (4.10-5.30); WHITE BLOOD CELL COUNT,WBC 5.99 K/uL (3.9-11.3)
[2024-02-09 06:41] LABS: CALCIUM 8.7 mg/dL (8.5-10.1); CARBON DIOXIDE,CO2 28.7 mmol/L (21.0-32.0); CREATININE 0.8 mg/dL (0.6-1.0); EST CRCL DRUG DOSING (CG) 67.27 mL/min; POTASSIUM,K 3.8 mmol/L (3.5-5.1)
[2024-02-09] MEDS: Famotidine 20 MG Tab PO SCH (08:07)
[2024-02-09] MEDS: Apixaban 5 MG Tab PO SCH (08:07)
[2024-02-09] MEDS: Diltiazem 180 MG Cap.CD PO SCH (08:08)
[2024-02-09] MEDS: Pantoprazole 40 MG Tab.CR PO SCH (08:08)
[2024-02-09] MEDS: Digoxin 125 MCG Tab PO SCH (08:09)
[2024-02-09] MEDS: Sertraline 100 MG Tab PO SCH (08:10)
[2024-02-09] MEDS: Formoterol/Mometasone 200-5 MCG 8.8 GM Inhaler INH SCH (08:33)
[2024-02-09] MEDS: Potassium Chloride 20 MEQ Tab.ER PO ONE (08:33)
[2024-02-09] MEDS: Ibuprofen 400 MG Tab PO PRN (10:36)
[2024-02-09 12:11] VITALS: BP 117/91; PULSE 74
[2024-02-09] MEDS ORDERED: Montelukast 10 MG Tab PO SCH (21:00)
== END 2024-02-09 12:13 | disposition home or self-care (01) | DRG 309 ==
LOC: MW.ED 22:36 → MW.ICU 02-09 02:10
PROVIDERS: ADMIT Internal Medicine; ATTEND Internal Medicine
DX: I48.91 Unspecified atrial fibrillation (principal); Z68.42 Body mass index [BMI] 45.0-49.9, adult; J44.9 Chronic obstructive pulmonary disease, unspecified; E78.00 Pure hypercholesterolemia, unspecified; G47.30 Sleep apnea, unspecified; K21.9 Gastro-esophageal reflux disease without esophagitis; M19.90 Unspecified osteoarthritis, unspecified site; M54.9 Dorsalgia, unspecified; Z75.8 Other problems related to medical facilities and other health care; G89.29 Other chronic pain; E66.9 Obesity, unspecified; Z79.01 Long term (current) use of anticoagulants; Z99.81 Dependence on supplemental oxygen; Z79.899 Other long term (current) drug therapy; Z79.51 Long term (current) use of inhaled steroids; Z87.19 Personal history of other diseases of the digestive system; Z87.81 Personal history of (healed) traumatic fracture; Z98.51 Tubal ligation status; Z98.890 Other specified postprocedural states; Z98.891 History of uterine scar from previous surgery; Z88.1 Allergy status to other antibiotic agents
CPT/HCPCS: 36415; 71045; 80053; 83880; 84484 ×2; 85025; 96374; 96375; 99285; J1160; J3490 ×5; J7040; 80048; 83735; A9270-GY